=== PATIENT | female | born 1975 | race Two or more races ===

== ENCOUNTER → 2024-02-15 | Outpatient (CLI) | payer MEDICAID, SELFPAY ==
--- NOTE | 2024-02-15 09:00 | XR_ITS ---
Examination: Breast ultrasound, unilateral, left complete Date and time of exam: February 15, 2024 0929 hours INDICATIONS: Diagnosis unspecified lump in the left breast unspecified quadrant, mammogram May 02, 2023 4 mm circumscribed oval mass 12:00 position left breast Technique: Real-time li scale ultrasonographic imaging performed left breast including all 4 quadrants as well as nipple retroareolar and axillary region. Findings: 12:00 cyst 8 x 10 mm 7:00 cyst 8 x 7 mm No solid nodules IMPRESSION: BI-RADS Category 2: Benign findings
--- NOTE | 2024-02-15 09:30 | XR_ITS ---
Examination: Diagnostic digital mammography, unilateral, left Computer aided detection 3-D breast Tomosynthesis, unilateral Date and time of exam: February 15, 2024 0942 hours INDICATIONS: Mammogram May 02, 2023 4 mm oval mass slightly inner left breast CC view Technique: Nonmagnified MLO, CC views of the left breast have been obtained, reconstructed from 3-D Tomosynthesis images. R2 computer aided detection program utilized for evaluation of suspicious masses and/or abnormal calcifications. 3-D Tomosynthesis images obtained. Findings: Scattered areas of fibroglandular density No suspicious nodule depicted Impression: BI-RADS category 2: Benign findings Return to yearly follow-up mammography
== END | disposition home or self-care (01) ==
PROVIDERS: PCP Nurse Practitioner Family; Referring Provider Nurse Practitioner Family; Visit Provider Nurse Practitioner Family
DX: R92.322 Mammographic fibroglandular density, left breast (principal); N60.02 Solitary cyst of left breast
CPT/HCPCS: 76641; 77061; 77065; G0279

== ENCOUNTER 2024-02-19 17:00 | Emergency (ER) | payer MEDICAID, SELFPAY ==
[2024-02-19 17:05] VITALS: BP 153/86; PULSE 72; RESP 18; TEMP 37; O2SAT 95
--- NOTE | 2024-02-19 17:09 | XR_ITS ---
Examination: AP chest single view Technique one AP upright chest single view Exam date and time: February 19, 2024 1759 hrs. Indications: Chest pain today. Findings: Normal heart size No pneumonia or pulmonary edema The osseous structures are intact Impression: No active disease
--- NOTE | 2024-02-19 17:09 | EDNOTE_ITS ---
ED General RME/HPI General Chief complaint: Dizziness Stated complaint: DIZZINESS Time Seen by Provider: 02/19/24 17:09 Arrival date/time: 02/19/24 17:00 CC: Dizziness, abnormal EKG HPI patient presents the ER via EMS who report of hypertension but no chest pain stating that the doctor at the [facility] stated the patient had questionable EKG. The patient has no chest pain shortness of breath or difficulty breathing at this time. Related Data Home Medications ?Medication ?Instructions ?Recorded ?Confirmed albuterol sulfate 90 mcg/actuation 2 puff inhalation Q4H PRN sob 08/10/21 08/10/21 aerosol inhaler montelukast 10 mg tablet 10 mg PO QDAY PRN allergies 08/10/21 08/10/21 Previous Rx's ?Medication ?Instructions ?Recorded amoxicillin 875 mg-potassium 1 tab PO BID #14 tabs 08/10/21 clavulanate 125 mg tablet doxycycline hyclate 100 mg tablet 100 mg PO BID #14 tabs 08/10/21 ibuprofen 800 mg tablet 800 mg PO TID PRN pain #30 tabs 06/26/22 meclizine 25 mg tablet 25 mg PO QDAY PRN dizziness #10 02/19/24 tabs Allergies Allergy/AdvReac Type Severity Reaction Status Date / Time bee venom protein (honey bee) Allergy Severe Swelling Verified 10/01/21 09:26 of Lip/Tongue/Throat Review of Systems Review of Systems Narrative Review of Systems: GEN: No fever, no chills, no weight loss EYES: No discharge, no visual changes, no pain HEENT: No ear pain, no congestion, no sore throat PULM: No shortness of breath, no cough, no congestion CV: No chest pain, no dyspnea on exertion, no palpitations GI: No nausea, no vomiting, no diarrhea, no pain, no constipation : No frequency, no urgency, no dysuria MUSC/SKEL: No joint pain, no back pain SKIN: No rash PSYCH: No hallucinations, no depression HEME/LYMPH: No easy bleeding or bruising tendencies NEURO: No weakness, no headache,+ dizziness ED Exam Narrative Physical exam: [General: Morbidly obese not in any acute distress Head normocephalic HEENT: Within acceptable limits Neck is supple nontender Chest equal chest rise nontender to palpation Respiratory: Clear to auscultation no wheezes crackles or rubs CV: Rate rhythm is regular no murmurs rubs or clicks Abdomen is distended secondary to body habitus soft nontender no masses positive bowel sounds all 4 quadrants Back: No CVA tenderness no spinous process tenderness from cervical spine thoracic and lumbar spine Skin: Intact no petechiae rash induration ulceration or crepitus Extremities: Moving all extremity against resistance cap refill less than 2 seconds neurosensory intact. No lower extremity edema Neuro: Awake alert oriented x3 Glascow coma 15 no focal deficits] Course Quality Measures none Orders Category Date Time Status EKG (ED ONLY) *Do not use* NOW Care 02/19/24 17:09 Completed EKG (ED Only) Stat Exams 02/19/24 17:09 Draft XR chest 1V Stat Exams 02/19/24 17:09 Completed B-Type Natriuretic Peptide Stat Lab 02/19/24 17:44 Completed CBC Stat Lab 02/19/24 17:44 Completed Comprehensive Metabolic Panel Stat Lab 02/19/24 17:44 Completed LDH (Lactate Dehydrogenase) Stat Lab 02/19/24 17:44 Completed Magnesium Stat Lab 02/19/24 17:44 Completed Partial Thromboplastin Time Stat Lab 02/19/24 17:44 Completed Prothrombin Time with INR Stat Lab 02/19/24 17:44 Completed Troponin I Stat Lab 02/19/24 17:44 Completed Vital Signs Vital signs: Vital Signs Temperature 98.6 F 02/19/24 17:05 Pulse Rate 72 02/19/24 17:05 Respiratory Rate 18 02/19/24 17:05 Blood Pressure 153/86 H 02/19/24 17:05 Pulse Oximetry (%) 95 02/19/24 17:05 Oxygen Delivery Method Room Air 02/19/24 17:05 [facility] Patient data External records reviewed:: [facility] previous records and EMS form Clinical information provided by:: patient and EMS Social determinants that could affect healthcare access:: none Patient has the following chronic illnesses:: Obesity How is presenting disease/condition affected by chronic disease/condition?: u neffected by Evaluation data The following diagnostics were reviewed and interpreted by me:: lab results, radiology exam(s) and EKG tracing(s) Lab and/or radiology exams considered but not ordered:: EKG performed at 1804 shows a ventricular rate of 6 6 NC interval 167 QRS of 9 0 QTc of 392's normal sinus rhythm CBC shows no acute leukocytosis anemia thrombocytopenia CMP shows mildly elevated glucose but no other acute electrolyte imbalances renal impairment transaminitis or T. bili elevation Coags within acceptable limits Troponin is negative Chest x-ray is unremarkable as interpreted by me and read by radiology Interpretation Summary: Dizziness with abnormal EKG Medications Medications considered but not ordered:: None Medication administrations:: None Consultations Consultation(s) initiated? (list below): No Diagnosis Differential Diagnosis ED Complaint MDM: ACS DC DC pneumonia Most likely diagnosis given after review of the tests above:: Dizziness Admission Indicated Admission indicated?: not indicated Explain why admission is indicated or not indicated:: Stable for outpatient follow-up Admission Request Was there a request for admission?: No Disposition Plan Disposition Plan: Discharge Discharge Attestation Discharge Attestation: The patient and all family members were given an opportunity to ask questions and understood the discharge instructions. Discharge instructions specifically effects, indications for sooner follow up or return to the emergency department, and the expected course of current diagnosis. Patient condition: Stable Medical Decision Making Differential Diagnosis Differential Diagnosis: ACS DC DC pneumonia Lab Data 02/19/24 17:44 02/19/24 17:44 Labs: Lab Results 02/19/24 Range/Units 17:44 WBC 8.5 (3.6-11.0) Thou/mm3 RBC 4.80 (4.00-5.20) Miln/mm3 Hgb 14.4 (12.0-16.0) g/dL Hct 41.5 (36.0-46.0) % MCV 87 (80-100) fL MCH 30.0 (25.0-35.0) pg MCHC 34.7 (31.0-37.0) g/dl RDW Std Deviation 38.7 (36.4-46.3) fL Plt Count 373 (140-440) Thou/mm3 Neut % (Auto) 63 (37-80) % Lymph % (Auto) 27 (10-50) % [place] % (Auto) 7 (0-12) % Eos % (Auto) 3 (0-10) % Baso % (Auto) 0 (0-2.5) % Neut # (Auto) 5.3 (1.8-7.7) Thou/mm3 Lymph # (Auto) 2.3 (1.0-4.8) Thou/mm3 [place] # (Auto) 0.6 (0.0-0.8) Thou/mm3 Eos # (Auto) 0.3 (0.0-0.5) Thou/mm3 Baso # (Auto) 0.0 (0.0-0.2) Thou/mm3 Immature Gran # (Auto) 0.02 H (0.00-0.00) Thou/mm3 Absolute Nucleated RBC 0.00 (0.00-0.00) Thou/mm3 Immature Gran % 0 (0-0) % Nucleated RBC % 0 (0) /100 WBC PT 10.4 (9.0-12.2) Seconds INR 0.9 (0.9-1.3) APTT 31.3 (22.0-36.0) Seconds Sodium 139 (136-145) mMol/L Potassium 3.8 (3.4-5.1) mMol/L Chloride 104 (98-107) mMol/L Carbon Dioxide 27.7 (20.0-31.0) mMol/L Anion Gap 7 (7-16) BUN 11 (9-23) mg/dL Creatinine 0.7 (0.6-1.3) mg/dL Estim Creat Clear Calc Not Performed. eGFR > 60 (60 - ) See Note BUN/Creatinine Ratio 16 (12-20) Ratio Glucose 99 (74-106) mg/dL Calculated Osmolality 276 (275-295) Calcium 9.3 (8.3-10.6) mg/dL Corrected Calcium 9.3 (8.5-10.1) mg/dL Magnesium 2.2 (1.6-2.6) mg/dL Total Bilirubin 0.3 (0.3-1.2) mg/dL AST 28 (0-34) U/L ALT 31 (10-49) U/L Alkaline Phosphatase 90 (46-116) U/L Lactate Dehydrogenase 170 (120-246) U/L Troponin I < 0.020 (0.0-0.045) ng/mL B-Natriuretic Peptide < 20 (0-100) pg/mL Total Protein 7.4 (5.7-8.2) gm/dL Albumin 4.6 (3.5-5.0) gm/dL Globulin 2.8 (2.3-3.5) gm/dL Albumin/Globulin Ratio 1.6 (1.2-2.2) Discharge Plan Plan Patient Disposition: HOME (Self Care) Patient condition on transfer: Stable Prescriptions/Referrals Prescriptions/Med Rec: New meclizine 25 mg tablet 25 mg PO QDAY PRN (Reason: dizziness) Qty: 10 0RF No Action montelukast 10 mg Tablet 10 mg PO QDAY PRN (Reason: allergies) albuterol sulfate 90 mcg/actuation Hfa Aerosol Inhaler 2 puff INHALATION Q4H PRN (Reason: sob) amoxicillin-pot clavulanate 875-125 mg tablet 1 tab PO BID Qty: 14 0RF doxycycline hyclate 100 mg tablet 100 mg PO BID Qty: 14 0RF ibuprofen 800 mg tablet 800 mg PO TID PRN (Reason: pain) Qty: 30 0RF Referrals: Trang Holland MD [Primary Care Provider] - In 1 week Problem List Clinical Impression: Dizziness Patient/Caregiver Discharge Instructions Print Language: Slovak Stand Alone Forms: [facility] Award Info., Patient Portal Info Letter
--- NOTE | 2024-02-19 17:09 | EKG_ITS ---
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
[2024-02-19 17:46] VITALS: PULSE 80; RESP 16; O2SAT 98
[2024-02-19 17:58] LABS: Basophils % (Auto) 0 % (0-2.5); Eosinophils # (Auto) 0.3 Thou/mm3 (0.0-0.5); Eosinophils % (Auto) 3 % (0-10); Hematocrit 41.5 % (36.0-46.0); Hemoglobin 14.4 g/dL (12.0-16.0); Immature Granulocytes % (Auto) 0 % (0-0); Immature Granulocytes Auto 0.02 Thou/mm3 (0.00-0.00); Lymphocytes # (Auto) 2.3 Thou/mm3 (1.0-4.8); Lymphocytes % (Auto) 27 % (10-50); Mean Corpuscular HGB Conc 34.7 g/dl (31.0-37.0); Mean Corpuscular Volume 87 fL (80-100); Monocytes # (Auto) 0.6 Thou/mm3 (0.0-0.8); Monocytes % (Auto) 7 % (0-12); Neutrophils # (Auto) 5.3 Thou/mm3 (1.8-7.7); Neutrophils % (Auto) 63 % (37-80); Nucleated Red Blood Cell % 0 /100 WBC (0); Platelet Count 373 Thou/mm3 (140-440); RDW Standard Deviation 38.7 fL (36.4-46.3); White Blood Count 8.5 Thou/mm3 (3.6-11.0)
[2024-02-19 18:23] LABS: INR 0.9 (0.9-1.3); Partial Thromboplastin Time 31.3 Seconds (22.0-36.0); Prothrombin Time 10.4 Seconds (9.0-12.2)
[2024-02-19 18:26] LABS: B-Type Natriuretic Peptide < 20 pg/mL (0-100)
[2024-02-19 18:28] LABS: Alanine Aminotransferase 31 U/L (10-49); Albumin, Serum 4.6 gm/dL (3.5-5.0); Albumin/Globulin Ratio 1.6 (1.2-2.2); Alkaline Phosphatase 90 U/L (46-116); Anion Gap 7 (7-16); Aspartate Amino Transferase 28 U/L (0-34); BUN/Creatinine Ratio 16 Ratio (12-20); Bilirubin,Total 0.3 mg/dL (0.3-1.2); Blood Urea Nitrogen 11 mg/dL (9-23); Calcium 9.3 mg/dL (8.3-10.6); Calcium (Corrected) 9.3 mg/dL (8.5-10.1); Carbon Dioxide 27.7 mMol/L (20.0-31.0); Chloride 104 mMol/L (98-107); Creatinine (Component) 0.7 mg/dL (0.6-1.3); Globulin 2.8 gm/dL (2.3-3.5); Glucose 99 mg/dL (74-106); LDH (Lactate Dehydrogenase) 170 U/L (120-246); Magnesium 2.2 mg/dL (1.6-2.6); Osmolality,Calculated 276 (275-295); Potassium 3.8 mMol/L (3.4-5.1); Sodium 139 mMol/L (136-145); Total Protein 7.4 gm/dL (5.7-8.2); Troponin I < 0.020 ng/mL (0.0-0.045); eGFR > 60 See Note
== END 2024-02-19 18:48 | disposition home or self-care (01) ==
PROVIDERS: Registered Nurse General Practice; Emergency Provider Emergency Medicine; PCP Obstetrics & Gynecology
DX: R42 Dizziness and giddiness (principal); I10 Essential (primary) hypertension
CPT/HCPCS: 36415; 71045; 80053; 80307; 81001; 83615; 83735; 83880; 84484; 85025; 85610; 85730; 93005; 99283

== ENCOUNTER → 2024-06-10 | Outpatient (CLI) | payer MEDICAID, SELFPAY | END | disposition home or self-care (01) | LOC: CDIM 08:34 | PROVIDERS: PCP Nurse Practitioner Family; Referring Provider Nurse Practitioner; Visit Provider Nurse Practitioner | DX: R91.8 Other nonspecific abnormal finding of lung field (principal) ==